=== PATIENT | male | born 1955 ===

== ENCOUNTER 2023-08-08 06:00 | Outpatient (RCR) | payer MEDICARE, SELFPAY | END 2023-08-26 23:59 | disposition home or self-care (01) | LOC: GPT 06:00 | PROVIDERS: Visit Provider Orthopaedic Surgery | DX: Z47.1 Aftercare following joint replacement surgery (principal); Z96.651 Presence of right artificial knee joint | CPT/HCPCS: 97032; 97110; 97140; 97161 ==

== ENCOUNTER 2023-08-27 06:00 | Outpatient (RCR) | payer MEDICARE, SELFPAY | END 2023-09-25 23:59 | disposition home or self-care (01) | LOC: GPT 06:00 | PROVIDERS: Visit Provider Orthopaedic Surgery | DX: Z47.1 Aftercare following joint replacement surgery (principal); Z96.651 Presence of right artificial knee joint | CPT/HCPCS: 97110; 97112; 97140; 97164 ==

== ENCOUNTER 2023-09-26 06:00 | Outpatient (RCR) | payer MEDICARE, SELFPAY | END 2023-10-26 23:59 | disposition home or self-care (01) | LOC: GPT 06:00 | PROVIDERS: Visit Provider Orthopaedic Surgery | DX: Z47.1 Aftercare following joint replacement surgery (principal); Z96.651 Presence of right artificial knee joint | CPT/HCPCS: 97110; 97140 ==

== ENCOUNTER 2023-10-27 06:00 | Outpatient (RCR) | payer MEDICARE, SELFPAY | END 2023-11-01 23:59 | disposition home or self-care (01) | LOC: GPT 06:00 | PROVIDERS: Visit Provider Orthopaedic Surgery | DX: Z47.1 Aftercare following joint replacement surgery (principal); Z96.651 Presence of right artificial knee joint | CPT/HCPCS: 97530 ==